=== PATIENT | male | born 1990 | race Caucasian/White ===

== ENCOUNTER 2020-08-27 09:30 | Emergency (ER) | payer OTHER ==
[~2020-08-27] VITALS: Ht 177.8 cm; Wt 80.0 kg
[2020-08-27 10:00] LABS: HEMATOCRIT. 40.4 % (42.0-52.0); HEMOGLOBIN. 14.1 g/dL (14.0-18.0); MEAN CORPUSCULAR HEMOGLOBIN 31.5 pg (28.0-32.0); MEAN CORPUSCULAR VOLUME 90.1 fL (80.0-94.0); MEAN PLATELET VOLUME 6.6 fl (7.4-10.4); PLATELET 416 x1000/uL (130-400); RED BLOOD CELL COUNT 4.48 mill/uL (4.7-6.1); RED CELL DISTRIBUTION WIDTH 13.2 % (11.6-14.6)
[2020-08-27] MEDS ORDERED: SODIUM CHLORIDE 0.9% 1,000 ML IV ONE ×2 (10:00→11:15)
[2020-08-27 10:10] LABS: CHLORIDE 108 mEq/L (98-107)
[2020-08-27 10:15] LABS: ETHANOL BLOOD 35 mg/dL
[2020-08-27 10:30] LABS: PLATELET ESTIMATE SLIGHTLY INCREASED
[2020-08-27 11:08] LABS: CLARITY URINE CLEAR (CLEAR); COLOR URINE YELLOW (YELLOW); KETONES URINE NEGATIVE (NEGATIVE); LEUKOCYTE ESTERASE URINE NEGATIVE (NEGATIVE); NITRITE URINE NEGATIVE (NEGATIVE); OCCULT BLOOD URINE NEGATIVE (NEGATIVE); PH URINE 5.5 (4.5-8.0); PROTEIN URINE NEGATIVE (NEGATIVE); SPECIFIC GRAVITY URINE 1.035 (1.005-1.030)
[2020-08-27 11:20] LABS: *AMPHETAMINES SCREEN URINE NEGATIVE (NEGATIVE); *BARBITURATES SCREEN URINE NEGATIVE (NEGATIVE); *BENZODIAZEPINES SCREEN URINE NEGATIVE (NEGATIVE); *COCAINE SCREEN URINE NEGATIVE (NEGATIVE); METHADONE URINE SCREEN NEGATIVE (NEGATIVE); OPIATES URINE SCREEN NEGATIVE (NEGATIVE)
[2020-08-27 11:21] LABS: CANNABINOID URINE SCREEN NEGATIVE (NEGATIVE); PHENCYCLIDINE URINE SCREEN NEGATIVE (NEGATIVE)
[2020-08-27] MEDS ORDERED: ONDANSETRON HCL 4MG/2ML INJ IV ONE ×2 (11:45→17:45)
[2020-08-27 18:56] LABS: CHLORIDE 106 mEq/L (98-107)
[2020-08-27 18:59] LABS: PROTHROMBIN TIME 11.2 sec (9.6-11.0)
[2020-08-27] MEDS ORDERED: ONDANSETRON 4MG ODT PO ONE (23:30)
[2020-08-29 07:38] VITALS: BP 110/62
== END 2020-08-29 07:57 ==
LOC: ER 09:52
DX: T43.291A Poisoning by other antidepressants, accidental (unintentional), initial encounter (principal); X58.XXXA Exposure to other specified factors, initial encounter; F32.9 Major depressive disorder, single episode, unspecified; F12.10 Cannabis abuse, uncomplicated; F15.10 Other stimulant abuse, uncomplicated; D72.829 Elevated white blood cell count, unspecified; T14.91XA Suicide attempt, initial encounter; F10.129 Alcohol abuse with intoxication, unspecified; Y90.1 Blood alcohol level of 20-39 mg/100 ml; Z20.822 Contact with and (suspected) exposure to COVID-19
CPT/HCPCS: 36415; 76705; 80053; 80305; 80307; 80320; 80329; 81003; 83690; 85025; 85610; 93005; 96361; 96374; 96376; 99285; C9803; J2405; J7030; Q0162; U0003; U0005; Z7610; G0480